=== PATIENT | female | born 1950 | race Caucasian/White ===

== ENCOUNTER 2018-10-10 07:25 | Day surgery (SDC) | payer MEDICARE, OTHER ==
[~2018-10-10] VITALS: Ht 165.1 cm; Wt 79.5 kg
[2018-10-10 07:51] VITALS: BP 135/83; PULSE 106; TEMP 97.8
[2018-10-10] MEDS ORDERED: ASPIRIN 81M81 MG/TA2 PO (08:22)
[2018-10-10] MEDS ORDERED: CARDIZEM CD360 MG PO (08:22)
[2018-10-10] MEDS ORDERED: RT ADVAIR HFA 2312 G IH (08:23)
[2018-10-10] MEDS ORDERED: LASIX 40MG TABL40 MG PO (08:23)
[2018-10-10] MEDS ORDERED: LEVAQUIN 750MG750 M1 PO (08:24)
[2018-10-10] MEDS ORDERED: XARELTO20 MG PO (08:24)
[2018-10-10 08:50] VITALS: BP 131/84; PULSE 104; TEMP 97.5
[2018-10-10 09:05] VITALS: BP 109/87; PULSE 98
[2018-10-10 09:20] VITALS: BP 137/85; PULSE 99
[2018-10-10 09:30] VITALS: BP 138/87; PULSE 84
== END 2018-10-10 09:45 | disposition home or self-care (01) ==
LOC: SDCO 07:25
DX: K22.0 Achalasia of cardia (principal); R05 Cough; F17.210 Nicotine dependence, cigarettes, uncomplicated; F41.9 Anxiety disorder, unspecified; I48.91 Unspecified atrial fibrillation; J44.9 Chronic obstructive pulmonary disease, unspecified
CPT/HCPCS: J2704; J7030

== ENCOUNTER 2018-10-13 14:54 | Emergency (ER) | payer MEDICARE, OTHER ==
[~2018-10-13] VITALS: Ht 165.1 cm; Wt 75.0 kg
[~2018-10-13 14:54] MED LIST: ASPIRIN 81M81 MG/TA2 PO; CARDIZEM CD360 MG PO; LASIX 40MG TABL40 MG PO; LEVAQUIN 750MG750 M1 PO; RT ADVAIR HFA 2312 G IH; XARELTO20 MG PO
[2018-10-13 15:01] VITALS: TEMP 98.3
[2018-10-13 15:52] LABS: BASO # 0.1 (0.0-0.2); BASO % 0.3 % (0.0-2.0); EOS % 0.1 % (0-4.0); GRAN # 12.1 (1.4-6.5); GRAN % 84.7 % (42.2-75.2); HEMOGLOBIN 11.8 g/dl (12.5-16.0); LYMPH # 0.4 (1.2-3.4); LYMPH % 2.9 % (20.0-51.0); MEAN CELL VOLUME 97 fl (80.0-100.0); MEAN CORPUSCULAR HEMOGLOBIN 32 pg (27.0-31.0); MEAN CORPUSCULAR HGB CONC 33 g/dl (33.0-37.0); MEAN PLATELET VOLUME 8.5 fl (7.4-10.4); MONO # 1.3 (0.1-0.6); MONO % 8.8 % (1.7-9.3); PLATELET COUNT 265 K/mm3 (130-400); RED BLOOD COUNT 3.72 M/mm3 (4.10-5.30); REDCELL DISTRIBUTION WIDTH-CV 14.9 % (11.5-14.5)
[2018-10-13 15:55] LABS: HEMATOCRIT 35.9 % (37.0-47.0)
[2018-10-13 15:58] LABS: INR 1.7 (0.8-3.0); PROTHROMBIN TIME 19.4 SECONDS (9.7-12.8)
[2018-10-13 16:00] LABS: PARTIAL THROMBOPLASTIN TIME 39.6 SECONDS (26.0-37.0)
[2018-10-13 16:05] LABS: ALBUMIN 3.4 gm/dL (3.5-5.0); BILIRUBIN,TOTAL 0.9 mg/dL (0.0-1.0); C-REACTIVE PROTEIN 5.7 mg/dL (0.0-0.9); CALCIUM 8.7 mg/dL (8.4-10.2); CREATININE, serum 0.92 mg/dL (0.52-1.25); POTASSIUM 3.4 mmol/L (3.4-5.0); TOTAL PROTEIN 6.3 gm/dL (6.4-8.2)
[2018-10-13 17:11] LABS: COLLECTION METHOD CLEAN CATCH
[2018-10-13 17:17] LABS: MUCOUS Present /lpf; PH 5 (5-8); SQUAMOUS EPITHELIAL 0-2 /hpf; URINE APPEARANCE Clear; URINE BACTERIA None Seen /hpf; URINE BILIRUBIN Negative (NEGATIVE); URINE BLOOD Negative (NEGATIVE); URINE COLOR Yellow; URINE GLUCOSE Negative (NEGATIVE); URINE KETONE Negative (NEGATIVE); URINE LEUKOCYTE ESTERASE Negative (NEGATIVE); URINE NITRATE Negative (NEGATIVE); URINE PROTEIN(semi-quant) Negative (NEGATIVE); URINE RBC 0-2 /hpf; URINE UROBILINOGEN Negative (NEGATIVE)
[2018-10-13] MEDS ORDERED: PREDNISONE20 MG PO (18:19)
[2018-10-13] MEDS ORDERED: ULTRAM 50MG TAB50 MG PO (18:19)
[2018-10-13 19:00] VITALS: BP 116/95; PULSE 82
== END 2018-10-13 19:00 | disposition home or self-care (01) ==
LOC: COL.ER 14:54
PROVIDERS: Emergency Medicine
DX: J44.9 Chronic obstructive pulmonary disease, unspecified (principal); I48.91 Unspecified atrial fibrillation; Z87.891 Personal history of nicotine dependence; Z79.51 Long term (current) use of inhaled steroids; Z79.82 Long term (current) use of aspirin
CPT/HCPCS: J7030; J7512; Q9967

== ENCOUNTER 2019-02-05 05:06 | Inpatient (IN) | payer MEDICARE, OTHER ==
[~2019-02-05] VITALS: Ht 157.5 cm; Wt 75.8 kg
[~2019-02-05 05:06] MED LIST changes: +PREDNISONE20 MG PO; +ULTRAM 50MG TAB50 MG PO
[2019-02-16 09:15] VITALS: BP 115/99; PULSE 98; TEMP 97.6
[2019-02-16] MEDS ORDERED: FOSAMAX 70MG TA70 MG PO (09:26)
[2019-02-16 09:45] LABS: HEMATOCRIT 40.8 % (37.0-47.0); HEMOGLOBIN 12.7 g/dl (12.5-16.0); MEAN CELL VOLUME 88 fl (80.0-100.0); MEAN CORPUSCULAR HEMOGLOBIN 27 pg (27.0-31.0); MEAN CORPUSCULAR HGB CONC 31 g/dl (33.0-37.0); MEAN PLATELET VOLUME 8.8 fl (7.4-10.4); PLATELET COUNT 212 K/mm3 (130-400); RED BLOOD COUNT 4.65 M/mm3 (4.10-5.30)
[2019-02-16 09:59] LABS: ALBUMIN 3.9 gm/dL (3.5-5.0); BILIRUBIN,TOTAL 0.6 mg/dL (0.0-1.0); CALCIUM 9.5 mg/dL (8.4-10.2); CREATININE, serum 0.77 mg/dL (0.52-1.25); MAGNESIUM 1.8 mg/dL (1.6-2.3); POTASSIUM 4.3 mmol/L (3.4-5.0); TOTAL PROTEIN 7.4 gm/dL (6.4-8.2)
[2019-02-16 10:07] LABS: INR 1.8 (0.8-3.0); PROTHROMBIN TIME 20.7 SECONDS (9.7-12.8)
[2019-02-16 11:26] VITALS: BP 114/53; PULSE 96; TEMP 98
[2019-02-16 15:51] VITALS: BP 109/70; PULSE 54; TEMP 98.1
[2019-02-16 20:06] VITALS: BP 119/57; PULSE 74; TEMP 97.8
[2019-02-16 23:48] VITALS: BP 111/70; PULSE 60; TEMP 97.8
[2019-02-16 23:52] VITALS: BP 106/55; PULSE 57; TEMP 98.1
[2019-02-17 04:02] VITALS: BP 117/63; PULSE 63; TEMP 97.5
[2019-02-17 06:57] LABS: BASO % 0.7 % (0.0-2.0); EOS # 0.2 (0.0-0.7); EOS % 4.1 % (0-4.0); GRAN # 3.5 (1.4-6.5); GRAN % 61.9 % (42.2-75.2); HEMATOCRIT 37.8 % (37.0-47.0); HEMOGLOBIN 11.5 g/dl (12.5-16.0); MEAN CELL VOLUME 89 fl (80.0-100.0); MEAN CORPUSCULAR HEMOGLOBIN 27 pg (27.0-31.0); MEAN CORPUSCULAR HGB CONC 30 g/dl (33.0-37.0); MEAN PLATELET VOLUME 10.1 fl (7.4-10.4); MONO # 0.9 (0.1-0.6); MONO % 15.8 % (1.7-9.3); PLATELET COUNT 220 K/mm3 (130-400); RED BLOOD COUNT 4.25 M/mm3 (4.10-5.30); REDCELL DISTRIBUTION WIDTH-CV 15.1 % (11.5-14.5)
[2019-02-17 07:10] LABS: CALCIUM 8.9 mg/dL (8.4-10.2); CREATININE, serum 0.76 mg/dL (0.52-1.25); POTASSIUM 4.2 mmol/L (3.4-5.0)
[2019-02-17 09:25] VITALS: BP 117/73; PULSE 80; TEMP 97.6
[2019-02-17 12:09] VITALS: BP 123/75; PULSE 83; TEMP 98.3
[2019-02-17 16:37] VITALS: BP 115/72; PULSE 77; TEMP 97.9
[2019-02-17 21:22] VITALS: BP 111/71; PULSE 77; TEMP 98.1
[2019-02-17 23:30] VITALS: BP 114/57; PULSE 52; TEMP 98.3
[2019-02-18] VITALS (9 sets, daily range): BP systolic 113–154; BP diastolic 54–87; PULSE 51–73; TEMP 97.5–98
[2019-02-18 06:47] LABS: BASO % 0.7 % (0.0-2.0); EOS # 0.2 (0.0-0.7); EOS % 3.8 % (0-4.0); GRAN # 3.9 (1.4-6.5); GRAN % 64.1 % (42.2-75.2); HEMOGLOBIN 11.5 g/dl (12.5-16.0); LYMPH # 0.9 (1.2-3.4); MEAN CELL VOLUME 89 fl (80.0-100.0); MEAN CORPUSCULAR HEMOGLOBIN 27 pg (27.0-31.0); MEAN CORPUSCULAR HGB CONC 30 g/dl (33.0-37.0); MEAN PLATELET VOLUME 9.7 fl (7.4-10.4); MONO % 15.7 % (1.7-9.3); PLATELET COUNT 206 K/mm3 (130-400); RED BLOOD COUNT 4.25 M/mm3 (4.10-5.30); REDCELL DISTRIBUTION WIDTH-CV 14.9 % (11.5-14.5)
[2019-02-18 06:54] LABS: CALCIUM 8.8 mg/dL (8.4-10.2); CREATININE, serum 0.84 mg/dL (0.52-1.25); POTASSIUM 4.8 mmol/L (3.4-5.0)
[2019-02-18] MEDS ORDERED: BETAPACE 80MG80 MG PO (09:52)
[2019-02-18] MEDS ORDERED: CEPHALEXIN500 M1 PO (09:52)
== END 2019-02-18 13:10 | disposition home or self-care (01) | DRG 262 ==
LOC: MEDICAL 02-16 05:06
PROVIDERS: ADMIT Internal Medicine Cardiovascular Disease
PROC: 0JH602Z Insertion of Monitoring Device into Chest Subcutaneous Tissue and Fascia, Open Approach (ICD-10-PCS; principal; 2019-02-18)
PROC: 5A2204Z Restoration of Cardiac Rhythm, Single (ICD-10-PCS; 2019-02-18)
DX: I48.1 Persistent atrial fibrillation (principal); I10 Essential (primary) hypertension; J44.9 Chronic obstructive pulmonary disease, unspecified; I73.9 Peripheral vascular disease, unspecified; Z95.820 Peripheral vascular angioplasty status with implants and grafts; Z87.891 Personal history of nicotine dependence; I27.20 Pulmonary hypertension, unspecified; Z79.01 Long term (current) use of anticoagulants
CPT/HCPCS: C1764; J2704

== ENCOUNTER → 2019-03-03 | Outpatient (CLI) | payer MEDICARE, OTHER ==
[~2019-03-03] MED LIST changes: +BETAPACE 80MG80 MG PO; +CEPHALEXIN500 M1 PO; +FOSAMAX 70MG TA70 MG PO
== END ==
LOC: MHCPAIN 14:22
DX: G89.29 Other chronic pain (principal); M54.12 Radiculopathy, cervical region; M47.812 Spondylosis without myelopathy or radiculopathy, cervical region
CPT/HCPCS: G0463

== ENCOUNTER → 2021-11-06 | Outpatient (CLI) | payer MEDICARE, OTHER | LOC: COL.RAD 13:01 | DX: Z12.2 Encounter for screening for malignant neoplasm of respiratory organs (principal); S22.050A Wedge compression fracture of T5-T6 vertebra, initial encounter for closed fracture; J47.9 Bronchiectasis, uncomplicated; R19.8 Other specified symptoms and signs involving the digestive system and abdomen; Z87.891 Personal history of nicotine dependence ==

== ENCOUNTER 2021-11-21 08:49 | Outpatient (CLI) | payer MEDICARE, OTHER ==
[2021-11-21] VITALS (16 sets, daily range): BP systolic 94–161; BP diastolic 49–64; PULSE 30–71; TEMP 97.9
[~2021-11-21 08:49] MED LIST changes: +TRELEGY ELLIPT1 EACH IH; +ZOCOR 20MG20 MG PO
--- NOTE | 2021-11-21 14:05 | NUR ---
Pt ready for departure. I have reviewed dc and fu instructions with pt, and pt also received verbal discharge instructions from dr. Jaimes when he came to see pt. Pt verbalizes understanding. IV dc'd wtih cath intact, dressing applied. Pt able to stand and is steady on her feet with her portable oxygen, no dizziness. no chest pain or new sob. PT escorted to exit via wheelchair
== END 2021-11-21 14:05 | disposition home or self-care (01) ==
LOC: COL.RAD 08:49
DX: R93.89 Abnormal findings on diagnostic imaging of other specified body structures (principal)
CPT/HCPCS: J2250; J3010

== ENCOUNTER 2022-03-22 08:58 | Outpatient (CLI) | payer MEDICARE, OTHER ==
[~2022-03-22] VITALS: Ht 162.6 cm; Wt 82.8 kg
[2022-03-22] VITALS (16 sets, daily range): BP systolic 100–156; BP diastolic 35–88; PULSE 50–86; TEMP 97.6
--- NOTE | 2022-03-22 10:25 | NUR ---
Pt to ct per wheelchair. Pt placed on monitor and O2 continues at 3l/nc. Pt on ct table with left side down.
--- NOTE | 2022-03-22 10:53 | NUR ---
Specimen obtained by Dr Jaimes and placed in formalin. Specimen labeled. Pt coughing up blood. Pt assisted with holding emesis bag and wiping blood from mouth. Dr Jaimes wants pt repositioned to right side down with repeat scan with ct. Pt repositioned. Pt continues to cough up blood, but the amount is decreasing.
--- NOTE | 2022-03-22 13:45 | NUR ---
Pt completed flat time and repeat CXR done; MD Jaimes at bedside at 1320; pt and daughter at bedside verbalized comfort in discharging home; 1335 pt changed clothes and replaced hospital O2 with home O2 via NC at 2L; health underwriter, RN, went over discharge instructions and pt verbalized understanding; PIV discontinued at 1340; R posterior scapula biopsy site covered with bandaid remains CDI and without s/s of infection to surrounding skin; pt transferred to wheelchair and escorted to private vehicle.
== END 2022-03-22 13:45 | disposition home or self-care (01) ==
LOC: COL.RAD 08:58
DX: R91.8 Other nonspecific abnormal finding of lung field (principal)
CPT/HCPCS: 32107

== ENCOUNTER 2023-12-16 13:54 | Outpatient (CLI) | payer MEDICARE, OTHER ==
[~2023-12-16] VITALS: Ht 162.6 cm; Wt 84.8 kg
[~2023-12-16 13:54] MED LIST changes: +EVENITY (2210 MG/2.3 SQ; +TRELEGY ELLIPT1 EAC1 IH; +TYLENOL 500MG500 MG PO
[2023-12-16 14:28] VITALS: BP 123/75; PULSE 70; TEMP 98.2
--- NOTE | 2023-12-16 14:51 | NUR ---
PT TOLERATED INJECTIONS WELL. VS REMAINED WITHIN NORMAL LIMITS, PT WAS ASSISTED TO MAIN LOBBY VIA WHEELCHAIR. PT FREE FROM ACUTE CONCERNS AND COMPLAINTS AT TIME OF DISCHARGE.
== END 2023-12-16 14:52 | disposition home or self-care (01) ==
LOC: EUO 13:54
DX: M81.0 Age-related osteoporosis without current pathological fracture (principal)
CPT/HCPCS: J3111

== ENCOUNTER → 2024-03-30 | Outpatient (CLI) | payer MEDICARE ==
[~2024-03-30] MED LIST changes: +Albuterol 0.083% Neb Soln 2.5 MG/3 ML UD IH ONE
== END ==
LOC: COL.CARD 09:26
DX: J44.9 Chronic obstructive pulmonary disease, unspecified (principal); Z87.891 Personal history of nicotine dependence